=== PATIENT | female | born 1985 | race Two or more races ===

== ENCOUNTER 2020-10-22 00:41 | Emergency (ER) | payer MEDICAID ==
[~2020-10-22] VITALS: Ht 167.6 cm; Wt 145.1 kg
[2020-10-22 01:40] VITALS: BP 155/80
== END 2020-10-22 03:23 | disposition home or self-care (01) ==
LOC: ER 00:42
DX: S60.454A Superficial foreign body of right ring finger, initial encounter (principal); R22.31 Localized swelling, mass and lump, right upper limb; E66.9 Obesity, unspecified; Z68.43 Body mass index [BMI] 50.0-59.9, adult; W22.8XXA Striking against or struck by other objects, initial encounter; Y93.89 Activity, other specified; Y92.89 Other specified places as the place of occurrence of the external cause; Y99.8 Other external cause status

== ENCOUNTER 2021-02-26 15:25 | Emergency (ER) | payer MEDICAID ==
[~2021-02-26] VITALS: Ht 167.6 cm; Wt 136.1 kg
[2021-02-26 15:44] VITALS: BP 128/87
== END 2021-02-26 17:49 | disposition home or self-care (01) ==
LOC: ER 15:25
DX: S61.214A Laceration without foreign body of right ring finger without damage to nail, initial encounter (principal); F17.210 Nicotine dependence, cigarettes, uncomplicated; Z90.49 Acquired absence of other specified parts of digestive tract; Z98.890 Other specified postprocedural states; Y04.8XXA Assault by other bodily force, initial encounter; Y93.89 Activity, other specified; Y92.89 Other specified places as the place of occurrence of the external cause; Y99.8 Other external cause status

== ENCOUNTER 2021-07-27 12:01 | Emergency (ER) | payer MEDICAID ==
[~2021-07-27] VITALS: Ht 167.6 cm; Wt 141.1 kg
[2021-07-27 12:07] VITALS: BP 156/81
== END 2021-07-27 14:43 | disposition left against medical advice (07) ==
LOC: ER 12:01
DX: S39.011A Strain of muscle, fascia and tendon of abdomen, initial encounter (principal); S00.81XA Abrasion of other part of head, initial encounter; F17.210 Nicotine dependence, cigarettes, uncomplicated; Z90.49 Acquired absence of other specified parts of digestive tract; Y04.2XXA Assault by strike against or bumped into by another person, initial encounter; Y93.89 Activity, other specified; Y92.89 Other specified places as the place of occurrence of the external cause; Y99.8 Other external cause status
CPT/HCPCS: 74176

== ENCOUNTER 2021-12-12 08:02 | Emergency (ER) | payer MEDICAID, OTHER ==
[~2021-12-12] VITALS: Ht 167.6 cm; Wt 104.3 kg
[2021-12-12 08:03] VITALS: BP 135/86
[2021-12-12 08:56] LABS: Basophils # (auto) 0.1 10 ^3/uL (0-0.2); Basophils % (auto) 0.9 % (0.0-2.0); Eosinophils # (auto) 0.1 10 ^3/uL (0-0.8); Eosinophils % (auto) 1.5 % (0.0-7.0); Hematocrit 40.9 % (36.0-46.0); Hemoglobin 13.7 g/dL (12.2-16.2); Lymphocytes % (auto) 24.4 % (10.0-50.0); Mean Corpuscular Hemoglobin 30.8 pg (28.0-32.0); Mean Corpuscular Hgb Conc. 33.6 g/dL (32.0-36.0); Mean Corpuscular Volume 91.9 fL (80.0-100.0); Monocytes # (auto) 0.5 10 ^3/uL (0-1.3); Monocytes % (auto) 5.5 % (0.0-12.0); Neutrophils # (auto) 5.6 10 ^3/uL (1.6-8.6); Neutrophils % (auto) 67.7 % (37.0-80.0); Nucleated Red Blood Cells % 0.1 %; Red Blood Cells 4.45 10^6/uL (4.0-5.20); Red Cell Distribution Width 15.2 % (11.8-14.3); White Blood Cell 8.3 10^3/uL (4.4-10.8)
[2021-12-12 09:15] LABS: Albumin 3.4 g/dL (3.4-5.0); BUN/Creatinine Ratio 11.4; Calcium 9.1 mg/dL (8.5-10.1)
[2021-12-12 09:23] LABS: Bilirubin, Total 0.6 mg/dL (0.2-1.0)
== END 2021-12-12 14:45 | disposition left against medical advice (07) ==
LOC: ER 08:02 → EDUNIT# 08:02 → ER 14:45
DX: R07.9 Chest pain, unspecified (principal)
CPT/HCPCS: 36415; 71045; 80053; 84484; 85025; 93005

== ENCOUNTER 2022-11-21 18:13 | Emergency (ER) | payer MEDICAID ==
[~2022-11-21] VITALS: Ht 167.6 cm; Wt 101.8 kg
[2022-11-21 18:56] VITALS: BP 120/84
[2022-11-21] MEDS ORDERED: TETANUS-DIPTH-ACEL PERTUSSIS 0.5ML SYR Tdap IM ONE (20:30)
[2022-11-21] MEDS ORDERED: LIDOCAINE 1% HCL (LOCAL ANESTH.) INJ 20ML MDV IJ ONE (21:45)
[2022-11-21] MEDS ORDERED: KETOROLAC TROMETH 30 MG/ML 1ML VIAL IM ONE (22:15)
== END 2022-11-21 22:28 | disposition home or self-care (01) ==
LOC: ER 18:13
DX: S01.112A Laceration without foreign body of left eyelid and periocular area, initial encounter (principal); S05.12XA Contusion of eyeball and orbital tissues, left eye, initial encounter; E11.9 Type 2 diabetes mellitus without complications; F17.210 Nicotine dependence, cigarettes, uncomplicated; W51.XXXA Accidental striking against or bumped into by another person, initial encounter; Y93.71 Activity, boxing; Y92.89 Other specified places as the place of occurrence of the external cause; Y99.8 Other external cause status
CPT/HCPCS: 12011; 70486; 90471; 90715; 96372; 99285; J1885; J2001

== ENCOUNTER 2023-06-23 15:23 | Emergency (ER) | payer MEDICAID ==
[~2023-06-23] VITALS: Ht 165.1 cm; Wt 104.5 kg
[2023-06-23 15:49] VITALS: BP 108/66; RESP 20; O2SAT 99
[2023-06-23 15:51] VITALS: PULSE 75
[2023-06-23] MEDS ORDERED: ACETAMINOPHEN 325 MG TAB PO ONE (16:45)
[2023-06-23] MEDS ORDERED: LORazepam 2MG/ML-1ML VIAL IV ONE (16:45)
[2023-06-23] MEDS ORDERED: SODIUM CHLORIDE 0.9% 1,000 ML IVB ONE (16:45)
== END 2023-06-23 20:50 | disposition left against medical advice (07) ==
LOC: ER 15:23 → EDBD 15:23 → ER 20:50
DX: R55 Syncope and collapse (principal)
CPT/HCPCS: 93005

== ENCOUNTER 2023-12-07 08:11 | Emergency (ER) | payer MEDICAID ==
[~2023-12-07] VITALS: Ht 167.6 cm; Wt 98.6 kg
[2023-12-07 08:11] VITALS: BP 136/85; RESP 16; O2SAT 98
[2023-12-07 08:34] LABS: Basophils # (auto) 0.1 10 ^3/uL (0-0.2); Basophils % (auto) 0.9 % (0.0-2.0); Eosinophils # (auto) 0.1 10 ^3/uL (0-0.8); Eosinophils % (auto) 1.3 % (0.0-7.0); Hematocrit 40.3 % (36.0-46.0); Hemoglobin 12.8 g/dL (12.2-16.2); Lymphocytes # (auto) 3.1 10 ^3/uL (0.4-5.4); Lymphocytes % (auto) 33.7 % (10.0-50.0); Mean Corpuscular Hemoglobin 27.5 pg (28.0-32.0); Mean Corpuscular Hgb Conc. 31.7 g/dL (32.0-36.0); Mean Corpuscular Volume 86.9 fL (80.0-100.0); Monocytes # (auto) 0.6 10 ^3/uL (0-1.3); Monocytes % (auto) 6.6 % (0.0-12.0); Neutrophils # (auto) 5.2 10 ^3/uL (1.6-8.6); Neutrophils % (auto) 57.5 % (37.0-80.0); Nucleated Red Blood Cells % 0.1 %; Red Blood Cells 4.64 10^6/uL (4.0-5.20); Red Cell Distribution Width 16.9 % (11.8-14.3); White Blood Cell 9.1 10^3/uL (4.4-10.8)
[2023-12-07 08:54] LABS: Alanine Aminotransferase 76 U/L (7-40); Alkaline Phosphatase 76 U/L (46-116); Anion Gap 11 (5-15); Aspartate Aminotransferase 46 U/L (13-40); BUN/Creatinine Ratio 10.5 (10.0-20.0); Blood Urea Nitrogen 8 mg/dL (9-23); Calcium 9.1 mg/dL (8.5-10.1); Carbon Dioxide 21 mmol/L (20-30); Chloride 107 mmol/L (98-107); Glucose 154 mg/dL (74-106); Sodium 139 mmol/L (136-145)
[2023-12-07 08:55] LABS: Bilirubin, Total 0.4 mg/dL (0.2-1.0); Total Protein 6.3 g/dL (5.7-8.2)
[2023-12-07 10:14] VITALS: PULSE 109
[2023-12-07] MEDS ORDERED: POTASSIUM EFFERVESENT TAB 25 MEQ PO ONE (11:15)
[2023-12-07] MEDS ORDERED: CEFD300C2 PO (15:30)
[2023-12-07] MEDS ORDERED: DICL50TA2 PO (15:30)
== END 2023-12-07 16:49 | disposition home or self-care (01) ==
LOC: ER 08:11
DX: R22.32 Localized swelling, mass and lump, left upper limb (principal); R07.89 Other chest pain; E87.6 Hypokalemia; E11.9 Type 2 diabetes mellitus without complications; F17.210 Nicotine dependence, cigarettes, uncomplicated; F15.10 Other stimulant abuse, uncomplicated
CPT/HCPCS: 36415; 73200; 80053; 84484; 85025; 93005